=== PATIENT | male | born 1975 | race African-American/Black ===

== ENCOUNTER 2017-02-16 04:05 | Emergency (ER) | payer OTHER ==
[~2017-02-16] VITALS: Ht 167.6 cm; Wt 137.0 kg
--- NOTE | 2017-02-16 04:09 | NUR ---
PATIENT TO ER BED 5
--- NOTE | 2017-02-16 04:10 | NUR ---
41/M BIBA C/O LOW BLOOD SUGAR. EMS STATES PT FROM HOME. BLOOD SUGAR ON SCENE 67. EMD STATES PT WAS GIVEN IM GLUCAGON 1GM PER FAMILY AND 48GM ORAL GLUCOSE BY EMS. PT HAS HISTORY OF DM. DENIES N/V/D; SKIN IS PINK/WARM/DRY; AAOX4 WITH EVEN AND STEADY GAIT; LUNGS CLEAR BL; HR EVEN AND REGULAR; PT DENIES ANY FEVER, CP, SOB, OR COUGH AT THIS TIME; PATIENT STATES PAIN OF 0/10 AT THIS TIME; VSS; PATIENT POSITIONED FOR COMFORT; HOB ELEVATED; BEDRAILS UP X2; BED DOWN. ER MD MADE AWARE OF PT STATUS.
[2017-02-16 04:15] VITALS: BP 140/88
--- NOTE | 2017-02-16 04:25 | NUR ---
Patient being evaluated by physician at bedside.
[2017-02-16] MEDS ORDERED: POTASSIUM CHLORIDE 10 MEQ TABER PO ONE (05:50)
--- NOTE | 2017-02-16 06:25 | NUR ---
Patient discharged with v/s stable. Written and verbal after care instructions given and explained. Patient verbalized understanding. Ambulatory with steady gait. All questions addressed prior to discharge. Advised to follow up with PMD.
[2017-02-16 06:26] VITALS: BP 118/78
== END 2017-02-16 06:26 | disposition home or self-care (01) ==
LOC: MED 04:05
DX: E11.649 Type 2 diabetes mellitus with hypoglycemia without coma (principal)